=== PATIENT | female | born 1955 | race Caucasian/White ===

== ENCOUNTER 2018-05-07 14:51 | Observation (INO) ==
[2018-05-07] MEDS ORDERED: Ipratropium/Albuterol Neb 3 ML IH ONE ×4 (15:03→17:34)
[2018-05-07] MEDS ORDERED: Ipratropium/Albuterol Neb 3 ML ONE ×2 (15:04→17:34)
--- NOTE | 2018-05-07 16:47 | Emergency Department Note ---
Disposition Clinical Impression: Hypoxemia Disposition: Admitted As Inpatient Condition: Fair Referrals: NONE,PCP [Primary Care Provider] - Time of Disposition: 16:49 SOB HPI - General Time Seen by Provider: 05/07/18 15:00 Source: patient Limitations: no limitations Nursing Notes Reviewed: Yes Vital Signs Reviewed: Yes - History of Present Illness Ms. Mayer had a colonoscopy today and I was called by the endoscopist who tells me that it appears as though she aspirated and required 6 L of nasal cannula to achieve 95% saturation. She had that saturation on room air before the procedure. Ms. Mayer tells me she is a smoker but does not use any inhalers. She has been coughing since she awoke from the procedure sedation. No fevers no chills no nausea no vomiting. She does have some abdominal bloating but no alen pain. No rectal bleeding. She is somewhat short of breath. - Related Data Home Medications Medication Instructions Recorded Confirmed Atorvastatin Calcium [Lipitor] 80 mg PO HS 08/28/15 05/07/18 Escitalopram Oxalate 20 mg PO DAILY 08/28/15 05/07/18 Lisinopril-HCTZ 20-12.5 [Prinzide 1 each PO DAILY 08/28/15 05/07/18 20-12.5] rOPINIRole [Requip] 1 mg PO DAILY 08/28/15 05/07/18 Buspirone HCl [Buspar] 15 mg PO BID 04/30/18 05/07/18 Allergies Allergy/AdvReac Type Severity Reaction Status Date / Time No Known Allergies Allergy Verified 08/28/15 21:34 Constitutional: Denies: fever, chills ENT ED: Denies: dysphagia Cardiovascular: Denies: dyspnea on exertion Respiratory: Reports: cough, sputum production Gastrointestinal: Denies: abdominal pain, nausea, vomiting Past Medical History - Past Medical History Medical history: Reports: GERD, hyperlipidemia, hypertension, kidney stones, other Psychiatric history: Reports: anxiety, depression [employer] history: Reports: no [employer] history - Social History Smoking Status: Current every day smoker Smokeless Tobacco Status: No Alcohol use: Reports: none Drug use: Reports: none Physical Exam - General Limitations: no limitations General appearance: alert, in no apparent distress - Head Head exam: atraumatic, normocephalic - Eye Eye exam: Present: normal appearance - ENT ENT exam: mucous membranes moist - Chest Chest inspection: Present: normal inspection, symmetric chest wall rise - Respiratory Respiratory exam: Present: wheezes (End expiratory wheezes bilaterally symmetrically with fair air exchange) - Cardiovascular Cardiovascular exam: Present: regular rate, normal rhythm, normal heart sounds - Abdominal Exam Abdominal exam: Present: soft, Non-Tender - Neurological Exam Neurological exam: Present: alert - Psychiatric Psychiatric exam: Present: normal affect, normal mood - Skin Skin exam: Present: warm, dry Course Vital Signs Temperature 98.2 F 05/07/18 14:53 Pulse Rate 79 05/07/18 14:53 Respiratory Rate 20 05/07/18 14:53 Blood Pressure 95/52 05/07/18 14:53 O2 Sat by Pulse Oximetry 92 05/07/18 14:53 Temperature 98.2 F 05/07/18 14:53 Pulse Rate 79 05/07/18 14:53 Respiratory Rate 20 05/07/18 14:53 Blood Pressure 95/52 05/07/18 14:53 O2 Sat by Pulse Oximetry 92 05/07/18 14:53 Oxygen Delivery Oxygen Delivery Nasal Cannula Shortness of Breath/Dyspnea - [facility] Narrative Medical decision making narrative: Reactive airway disease secondary to aspiration. She felt better after DuoNeb nebs and remained in the low 90s for saturation off nasal cannula however a short time later did desaturate asked to 88% rebounded nicely to the mid 90s with replacement of the nasal cannula. Prudent to admit her at this point for frequent duo nebs and prednisone. I do not believe that she has a alen infection/aspiration pneumonia at this point. I spoke with the covering hospitalist here at [facility] presented the case. He accepted admission. She was transferred to the floor in stable condition. - Medical Records Medical records reviewed: Yes I reviewed the patient's medical records. - Lab Data Lab results reviewed: Yes I reviewed the patient's lab results. - Radiology Data Radiology results reviewed: Yes I reviewed the patient's radiology results.
[2018-05-07] MEDS ORDERED: methylPREDNISolone 60 MG in 0.9 % Sodium Chloride 100 ML IVPB ONE ×2 (17:14→17:34)
[2018-05-07 17:32] LABS: Basophils % 0.1 %; Hematocrit 41.1 % (35.3-44.9); Hemoglobin 13.5 g/dL (11.5-15.4); Immature Granulocytes % 0.3 % (0-4); Lymphocytes # 0.5 K/mcL (0.6-4.6); Lymphocytes % 3.2 %; Mean Corpuscular HGB Conc 32.8 g/dL (31.6-35.5); Mean Corpuscular Hemoglobin 29.6 pg (28.0-33.3); Mean Corpuscular Volume 90.1 fL (83.0-100.0); Mean Platelet Volume 9.9 fL (9.4-12.4); Monocytes # 0.3 K/mcL (0.0-1.3); Monocytes % 1.8 %; Platelet Count 304 K/mcL (140-400); Red Blood Count 4.56 M/mcL (3.82-4.97); Red Cell Distribution Width 13.9 % (11.5-14.5); Segmented Neutrophils % 94.6 %
[2018-05-07] MEDS ORDERED: Ipratropium/Albuterol Neb 3 ML IH PRN (17:34)
[2018-05-07] MEDS ORDERED: Naloxone 0.4 MG/ML INJ IVP PRN (17:34)
[2018-05-07 17:37] LABS: INR 1.1; Prothrombin Time 12.1 Seconds (9.4-12.1)
[2018-05-07 17:40] LABS: Activated Partial Thrombo Time 35.5 Seconds (26.0-36.0)
[2018-05-07 17:46] LABS: Alanine Aminotransferase 10 Units/L (7-52); Albumin 4.1 g/dL (3.5-5.7); Albumin/Globulin Ratio 1.3 (1.1-2.2); Alkaline Phosphatase 89 Units/L (34-104); Aspartate Amino Transferase 11 Units/L (13-39); BUN/Creatinine Ratio 19 (6-26); Bilirubin,Total 0.3 mg/dL (0.3-1.0); Blood Urea Nitrogen 15 mg/dL (8-23); Calcium 8.9 mg/dL (8.6-10.3); Carbon Dioxide 23 mEq/L (23-29); Chloride 106 mEq/L (98-107); Globulin 3.1 g/dL (2.4-3.5); Glucose 137 mg/dL (70-105); Osmolality,Calculated 287 (280-300); Potassium 3.2 mEq/L (3.5-5.1); Sodium 137 mEq/L (136-145); Total Protein 7.2 g/dL (6.4-8.9); eGFR For Non-African Americans > 60 (> 60)
[2018-05-07] MEDS: methylPREDNISolone 125 MG/2 ML VIAL IVP SCH (21:18)
[2018-05-08] MEDS: methylPREDNISolone 125 MG/2 ML VIAL IVP SCH ×2 (00:12→05:19)
[2018-05-08 06:05] LABS: BUN/Creatinine Ratio 24 (6-26); Blood Urea Nitrogen 17 mg/dL (8-23); Calcium 9.1 mg/dL (8.6-10.3); Carbon Dioxide 18 mEq/L (23-29); Chloride 107 mEq/L (98-107); Glucose 208 mg/dL (70-105); Osmolality,Calculated 288 (280-300); Potassium 3.9 mEq/L (3.5-5.1); Sodium 135 mEq/L (136-145); eGFR For Non-African Americans > 60 (> 60)
[2018-05-08] MEDS ORDERED: *HR* Enoxaparin 40 MG/0.4 ML SYRINGE SQ SCH (07:00)
[2018-05-08 07:01] VITALS: BP 132/77
[2018-05-08] MEDS ORDERED: Lisinopril-HCTZ 20-12.5mg TABLET PO SCH (09:00)
[2018-05-08] MEDS ORDERED: rOPINIRole 1 MG TABLET PO SCH (09:00)
--- NOTE | 2018-05-08 10:18 | Discharge Summary ---
Addendum entered and electronically signed by Evangelist Nichols MD 05/08/18 10:50: I have personally performed a face to face evaluation on this patient. I have r eviewed and agree with the care plan. History and Exam by me shows: Please see my H&P addendum, this date. Original Note: Date of Encounter: 05/08/18 Time of Encounter: 10:16 - Discharge Diagnosis (1) Hypoxemia Priority: Primary Status: Acute Comments: Patient was admitted to this facility through the ED after being evaluated for possible aspiration while having a colonoscopy procedure performed. Patient was complaining of shortness of breath and was showing hypoxia on room air with saturations in the high 80s. Patient was admitted overnight for observation and received Solu-Medrol and nebulizer treatments. Today patient states that her respiratory effort has improved and patient has been maintaining a saturation of 91% on room air. Lungs are clear throughout upper malik and diminished bases. Patient will be discharged to home with Augmentin as a antibiotic and was instructed to follow up with her primary care physician within one week. (2) HTN (hypertension) Priority: Secondary Status: Chronic Comments: Patient with a history of hypertension. Vital signs are stable during her stay at this facility. Patient is continue with her home medications and follow-up with PCP in one week. Qualifiers: Hypertension type: unspecified Qualified Code(s): I10 - Essential (primary) hypertension (3) Anxiety Priority: Secondary Status: Chronic Comments: No acute issues during her stay. Patient appears relaxed during interview. Patient is continued on her home medications and follow-up with PCP in one week. Hospital course: Ms. Mayer is a 62 year old female, who was admitted to this facility through the ED after being evaluated for possible aspiration while having a colonoscopy procedure performed. Patient was complaining of shortness of breath and was showing hypoxia on room air with saturations in the high 80s. Patient was admitted overnight for observation and received Solu-Medrol and nebulizer treatments. Today patient states that her respiratory effort has improved and patient has been maintaining a saturation of 91% on room air. Lungs are clear throughout upper malik and diminished bases. Patient will be discharged to home with Augmentin as a antibiotic and was instructed to follow up with her primary care physician within one week - Time Spent with Patient Total time spent providing and/or coordinating discharge services: - Discharge Medications Prescriptions: New Amoxicillin/Clavulanate [Augmentin] 500 mg PO BIDWM 10 Days #20 tablet No Action rOPINIRole [Requip] 1 mg PO DAILY Atorvastatin Calcium [Lipitor] 80 mg PO HS Lisinopril-HCTZ 20-12.5 [Prinzide 20-12.5] 1 each PO DAILY Escitalopram Oxalate 20 mg PO DAILY Buspirone HCl [Buspar] 15 mg PO BID Home Medications: Atorvastatin Calcium [Lipitor] 80 mg PO HS 08/28/15 [History] Escitalopram Oxalate 20 mg PO DAILY 08/28/15 [History] Lisinopril-HCTZ 20-12.5 [Prinzide 20-12.5] 1 each PO DAILY 08/28/15 [History] rOPINIRole [Requip] 1 mg PO DAILY 08/28/15 [History] Buspirone HCl [Buspar] 15 mg PO BID 04/30/18 [History] Amoxicillin/Clavulanate [Augmentin] 500 mg PO BIDWM 10 Days #20 tablet 05/08/18 [Rx] Allergies/Adverse Reactions: Allergy/AdvReac Type Severity Reaction Status Date / Time No Known Allergies Allergy Verified 08/28/15 21:34 Date of admission: 05/07/18 17:25 Primary care physician: PCP NONE Discharging clinician: Evangelist Nichols - Constitutional Vitals: Temp Pulse Resp BP Pulse Ox 98.1 F 98 16 132/77 91 05/08/18 06:57 05/08/18 08:03 05/08/18 08:03 05/08/18 06:57 05/08/18 08:03 General appearance: Present: A&O X 3, pleasant - Head Head exam: Present: atraumatic, normocephalic - Eye Eye exam: Present: PERRL, conjuntiva pink, sclera anicteric Pupils: Present: PERRL - Neck Neck exam general surgery: Present: supple, trachea midline. Absent: lymphadenopathy - Respiratory Respiratory exam: Present: CTAB. Absent: accessory muscle use, rales, rhonchi, wheezes Additional comments: Lungs are clear throughout upper malik with diminished bases. Respiratory effort appears relaxed. Productive cough. Oximetry shows saturation of 91% on room air. - Cardiovascular Cardiovascular exam: Present: RRR, +S1, +S2. Absent: diastolic murmur, gallop, rubs, systolic murmur - GI/Abdominal GI/Abdominal exam: Present: normal bowel sounds, soft, no peritoneal signs. Ab sent: distended, tenderness - Extremities Exam Extremities exam: Present: warm, radial pulses palpable and symmetrical. Absent: calf tenderness, cyanotic, pedal edema - Neurological Exam Neurological exam: Present: CN II-XII intact, oriented X3, no focal deficits. Absent: pronater drift, facial droop, speech deficit - Skin Skin exam: Present: dry, intact - Patient Status Disposition: Home, Self-Care Condition: Fair Functional capacity at discharge: independent ambulation Overall status at discharge: patient is progressing back to baseline - Discharge Instructions Follow Up With: NONE,PCP [Primary Care Provider] - Buddy Cee SENIOR MEDICAL WRITER [Non-Partnered Physician] - 05/14/18 8:40 am Forms: ED Satisfaction Letter - Diet and Activity Activity: increase activity as tolerated Diet: advance to your usual diet, low fat, low cholesterol, low salt diet
--- NOTE | 2018-05-08 10:27 | Internal Med History&Physical ---
Addendum entered and electronically signed by Evangelist Nichols MD 05/08/18 10:46: I have personally performed a face to face evaluation on this patient. I have r eviewed and agree with the care plan. History and Exam by me shows: History and physical reviewed with patient. She was in her usual state of health until yesterday when she had a colonoscopy. Apparently, she was felt to have aspirated after recovery. She had some cough and malaise yesterday. She shortness of breath. Overnight, she has returned to normal and feels that her cough has normalized and she has had no dyspnea. Her oxygenation has returned to baseline. She wants to go home. Past medical history is significant for smoking and she was advised to stop smoking. She has hypertension, depression, hyperlipidemia, anxiety. She has no known drug allergies and her medications were reviewed. She wears upper dentures and these are not in place, currently. Patient has no complaint of chest discomfort, dyspnea, orthopnea, breathing problems, palpitations, nausea or vomiting, constipation or diarrhea, other changes in bowel habits, heartburn, difficulty with urination, kidney problems or kidney stones, fevers chills or sweats, rash or itching, seizures, headache or lightheadedness, heat or cold intolerance, blood problems or anemia, or other new complaints, except as mentioned above. Review of systems is otherwise negative. Examination: (Except as mentioned above): General: In no apparent distress, alert and oriented 3. Head: Atraumatic and normocephalic. Eyes: Extraocular muscles are intact, pupils equal round and reactive to light and accommodation. Sclerae anicteric. Ears: External ears are normal to inspection and hearing is grossly normal. Nose: Patent without lesion noted. Mouth: No intraoral lesions seen. She is edentulous upper and has teeth in poor repair, lower. Neck: Supple with trachea midline. There is no thyromegaly or adenopathy and carotids are 2+ without bruit heard. Respiratory: No use of accessory muscles. Lungs are clear throughout. Normal airflow. Cardiovascular: Regular rate and rhythm without murmur appreciated. Abdomen: Bowel sounds are normal. No hepatosplenomegaly masses or tenderness. Obese and therefore difficult to palpate deeply. Extremities: No cyanosis clubbing or edema. Neurological: A and O 3. Cranial nerves II through XII are intact. No focal deficits and no abnormal movements or postures. Skin: Warm and non-diaphoretic with no lesions noted. Breasts, pelvic and rectal: Not examined. We will empirically give her a week's worth of Augmentin and asked that she follow-up with her primary provider within the next week. As above, she has been counseled to quit smoking. Original Note: Date of Encounter: 05/08/18 Time of Encounter: 10:24 Assessment and Plan (1) Hypoxemia Current visit: Yes Status: Acute Patient was admitted through the emergency department for aspiration and hypoxia. Patient was unable to maintain a saturation greater than 90% on room air while being evaluated in emergency department. Patient was admitted and received Solu-Medrol and nebulizer treatments overnight. Today patient states that her respiratory effort has improved greatly. Denies productive cough. Lungs are clear. His x-ray did show possibility of pneumonia. Recent being fair for discharge and will recommend that she follows up with her PCP in one week. Patient will be given a prescription for Augmentin at time of discharge. Patient saturating greater than 90% on room air this morning (2) HTN (hypertension) Current visit: Yes Status: Chronic Vital signs remained stable. Patient will be discharged with recommendations follow-up with family physician and continue on home medications. Qualifiers: Hypertension type: unspecified Qualified Code(s): I10 - Essential (primary) hypertension (3) Anxiety Current visit: Yes Status: Chronic No acute issues during her stay at this facility. Patient remains calm this morning. Patient will be discharged with recommendations continue on her home medications and follow-up PCP in 1 week. Internal Medicine - H&P: HPI Chief complaint: aspiration Admitted From: Emergency Dept Plans for Post Hospital Care: Home History of present illness: Ms. Mayer is a 62 year old female, who was admitted to this facility through the ED after being evaluated for possible aspiration while having a colonoscopy procedure performed. Patient was complaining of shortness of breath and was showing hypoxia on room air with saturations in the high 80s. Patient was admitted overnight for observation and received Solu-Medrol and nebulizer treatments. Today patient states that her respiratory effort has improved and patient has been maintaining a saturation of 91% on room air. Lungs are clear throughout upper malik and diminished bases. Past Med Surg Social Fam HX - Past Medical History Medical history: GERD, hyperlipidemia, hypertension, kidney stones, other Additional medical history: RLS, LT ANKLE FX Psychiatric history: anxiety, depression - Past Surgical History Additional surgical history: LT ANKLE SURG. Bowel abscess which required draining. ( As a teen) - Social History Smoking Status: Current every day smoker Smokeless Tobacco Status: No Alcohol use: none Drug use: none Internal Medicine - H&P: Meds Atorvastatin Calcium [Lipitor] 80 mg PO HS 08/28/15 [History] Escitalopram Oxalate 20 mg PO DAILY 08/28/15 [History] Lisinopril-HCTZ 20-12.5 [Prinzide 20-12.5] 1 each PO DAILY 08/28/15 [History] rOPINIRole [Requip] 1 mg PO DAILY 08/28/15 [History] Buspirone HCl [Buspar] 15 mg PO BID 04/30/18 [History] Amoxicillin/Clavulanate [Augmentin] 500 mg PO BIDWM 10 Days #20 tablet 05/08/18 [Rx] Allergy/AdvReac Type Severity Reaction Status Date / Time No Known Allergies Allergy Verified 08/28/15 21:34 All Systems PM: A 10-system review of systems was performed and is negative for pertinent findings except as documented above in the HPI. - Constitutional Constitutional: as per HPI, no chills, no fever(s), no night sweats - EENT Eyes: as per HPI, no change in vision, no discharge, no pain, no photophobia Ears: no ear discharge, no ear pain, no tinnitus Nose, mouth and throat: as per HPI, no dysphagia, no nasal discharge, no neck pa in, no sore throat - Breasts Breasts: as per HPI - Cardiovascular Cardiovascular ROS IM: as per HPI, no chest pain, no diaphoresis, no dyspnea, no lightheadedness, no palpitations, no syncope - Respiratory Respiratory: as per HPI, no cough, no dyspnea, no wheezing, no excessive phlegm production - Gastrointestinal Gastrointestinal: as per HPI, no abdominal pain, no diarrhea, no hematemesis, no hematochezia, no melena, no nausea, no vomiting - Genitourinary Genitourinary: no change in urinary stream, no dysuria, no flank pain, no hematuria - Musculoskeletal Musculoskeletal ROS IM: as per HPI, no numbness, no tingling - Integumentary Integumentary IM: as per HPI, no rash, no unusual bruising - Neurological Neurological ROS: as per HPI, no confusion, no convulsions, no focal weakness, no numbness, no tingling, no tremor(s) - Hematologic/Lymphatic Hematologic/Lymphatic: no easy bruising - Constitutional Vitals: Temp Pulse Resp BP Pulse Ox 98.1 F 98 16 132/77 91 05/08/18 06:57 05/08/18 08:03 05/08/18 08:03 05/08/18 06:57 05/08/18 08:03 General appearance: Present: A&O X 3, pleasant - Head Head exam: Present: atraumatic, normocephalic - Eye Eye exam: Present: PERRL, conjuntiva pink, sclera anicteric Pupils: Present: PERRL - Neck Neck exam general surgery: Present: supple, trachea midline. Absent: ly mphadenopathy - Respiratory Respiratory exam: Present: CTAB. Absent: accessory muscle use, rales, rhonchi, wheezes Additional comments: Lungs are clear throughout upper malik with diminished bases. Respiratory effort appears relaxed. Oximetry shows saturation of 91% while on room air. Patient denies any productive cough. - Cardiovascular Cardiovascular exam: Present: RRR, +S1, +S2. Absent: diastolic murmur, gallop, rubs, systolic murmur - GI/Abdominal GI/Abdominal exam: Present: normal bowel sounds, soft, no peritoneal signs. Absent: distended, tenderness - Extremities Exam Extremities exam: Present: warm, radial pulses palpable and symmetrical. Absent: calf tenderness, cyanotic, pedal edema - Neurological Exam Neurological exam: Present: CN II-XII intact, oriented X3, no focal deficits. Absent: pronater drift, facial droop, speech deficit - Skin Skin exam: Present: dry, intact Internal Med - H&P Results - Labs CBC & Chem 7: 05/07/18 17:25 05/08/18 04:13 Labs: Short CBC 05/07/18 Range/Units 17:25 WBC 15.8 H (4.3-11.1) K/mcL Hgb 13.5 (11.5-15.4) g/dL Hct 41.1 (35.3-44.9) % Plt Count 304 (140-400) K/mcL Neutrophils # 15.0 H (1.6-8.9) K/mcL BMP 05/07/18 05/08/18 17:25 04:13 Sodium 137 135 L Potassium 3.2 L 3.9 Chloride 106 107 Carbon Dioxide 23 18 L BUN 15 17 Creatinine 0.80 0.70 Glucose 137 H 208 H Calcium 8.9 9.1 Liver Function 05/07/18 Range/Units 17:25 Total Bilirubin 0.3 (0.3-1.0) mg/dL AST 11 L (13-39) Units/L ALT 10 (7-52) Units/L Alkaline Phosphatase 89 (34-104) Units/L Albumin 4.1 (3.5-5.7) g/dL
== END 2018-05-08 10:42 | disposition home or self-care (01) ==
LOC: INPGRE 14:51 → EMEROOGRE 14:51 → INPGRE 17:55